=== PATIENT | male | born 1990 | race Caucasian/White ===

== ENCOUNTER 2016-09-28 18:56 | Emergency (ER) | payer MEDICAID | END 2016-09-28 20:31 | disposition home or self-care (01) | DX: B36.0 Pityriasis versicolor (principal); F17.200 Nicotine dependence, unspecified, uncomplicated ==

== ENCOUNTER 2018-01-19 12:13 | Emergency (ER) | payer BC, MEDICAID ==
--- NOTE | 2018-01-19 14:23 | ED Physician Documentation ---
PD HPI CHEST PAIN - Stated complaint Stated Complaint: CHEST PX - Chief complaint Chief Complaint: General - History obtained from History obtained from: Patient - History of Present Illness Timing - onset: Today, How many months ago (1-2) Timing - details: Intermittant Quality: Sharp, Tearing, Pain Location: Substernal, Right chest Radiation: Back Improved by: Nothing (it comes intermittently, not related to food nor activity per se. Usually during the day. Pain will be sharp and severe, cause catching of breath and worse with breathing, then slowly fade over minutes to hours. No pains intervening times.) Worsened by: Inspiration, Movement. No: Eating, Palpation Associated symptoms: Shortness of air. No: Nausea, Feeling faint / dizzy, General Weakness, Palpitations, Cough Similar symptoms before: No diagnosis (had occurred intermittently about 1-2 times per week the past couple of months.) Recently seen: Not recently seen Review of Systems Constitutional: denies: Fever, Chills Nose: denies: Rhinorrhea / runny nose, Congestion Throat: denies: Sore throat Cardiac: reports: Chest pain / pressure (as in HPI). denies: Palpitations, Pedal edema, Calf pain Respiratory: reports: Wheezing (occasional due to smoking). denies: Dyspnea, Cough GI: denies: Abdominal Pain, Nausea, Vomiting, Diarrhea : denies: Dysuria, Frequency Skin: denies: Rash Neurologic: denies: Focal weakness, Numbness, Near syncope, Syncope, Headache Endocrine: denies: Weight loss, Easy bruising / bleeding Immunocompromised: denies: Immunocompromised PD PAST MEDICAL HISTORY - Past Medical History Cardiovascular: None Respiratory: None Neuro: None Endocrine/Autoimmune: None GI: Ulcers, Crohn's disease : Kidney stones - Past Surgical History Past Surgical History: No - Present Medications Home Medications: Ambulatory Orders Medication Instructions Recorded Confirmed Cyclobenzaprine [Flexeril] 10 mg PO QPM PRN #20 tablet 01/20/18 Ibuprofen [Motrin] 400 mg PO Q6H PRN #30 tablet 01/20/18 Lidocaine Patch 5% [Lidoderm Patch] 1 each TOP DAILY PRN #10 patch 01/20/18 Sucralfate 1 gm PO ACHS #120 tablet 01/20/18 raNITIdine [Zantac] 150 mg PO BID #60 tablet 01/20/18 - Allergies Allergies/Adverse Reactions: Allergies Allergy/AdvReac Type Severity Reaction Status Date / Time No Known Drug Allergies Allergy Verified 01/20/18 06:33 - Living Situation Living Situation: reports: Alone Living Arrangement: reports: At home - Social History Does the pt smoke?: Yes Smoking Status: Current every day smoker Does the pt drink ETOH?: No Does the pt have substance abuse?: Yes - Family History Family history: reports: Non contributory. denies: Venous thromboembolism, Aortic dissection - Immunizations Immunizations are current?: Yes - POLST Patient has POLST: No PD ED PE NORMAL - Vitals Vital signs reviewed: Yes - General General: Alert and oriented X 3, Well developed/nourished - HEENT HEENT: Pharynx benign - Neck Neck: Supple, no meningeal sign, No adenopathy - Cardiac Cardiac: RRR, No murmur - Respiratory Respiratory: Clear bilaterally - Abdomen Abdomen: Soft, Non tender - Back Back: No CVA TTP - Derm Derm: Normal color, Warm and dry - Extremities Extremities: No deformity, No tenderness to palpate, Normal ROM s pain, No edema , No calf tenderness / cord - Neuro Neuro: Alert and oriented X 3, No motor deficit, Normal speech - Psych Psych: Normal mood, Normal affect Results - Vitals Vitals: Vital Signs - 24 hr 01/19/18 01/19/18 01/19/18 12:18 13:59 14:23 Temperature 36.8 C Heart Rate 89 76 71 Respiratory 16 12 12 Rate Blood Pressure 127/65 121/76 119/75 O2 Saturation 98 98 100 01/19/18 15:38 Temperature Heart Rate 59 L Respiratory 13 Rate Blood Pressure 114/73 O2 Saturation 99 Oxygen O2 Source Room air - EKG (time done) 12:19 Rate: Rate (enter#) (89) Rhythm: NSR [place]: Normal Intervals: Normal [place] QRS: Normal Ischemia: Normal ST segments, ST elevation c/w repol. No: ST elevation c/w ischemia, ST depression, T wave inversion - Labs Labs: Laboratory Tests 01/19/18 01/19/18 01/19/18 15:20 15:20 15:20 WBC 7.5 RBC 4.71 Hgb 14.4 Hct 42.1 MCV 89.5 MCH 30.6 MCHC 34.2 RDW 13.1 Plt Count 287 MPV 6.8 L Neut # (Auto) 4.9 Lymph # (Auto) 2.0 Weld # (Auto) 0.5 Eos # (Auto) 0.1 Baso # (Auto) 0.1 Absolute Nucleated RBC 0.00 Nucleated RBC % 0.0 ESR 2 Sodium 135 Potassium 3.9 Chloride 108 Carbon Dioxide 25 Anion Gap 2.0 L BUN 11 Creatinine 0.7 Estimated GFR (MDRD) 136 Glucose 88 Calcium 8.7 Total Bilirubin 0.6 AST 23 ALT 19 Alkaline Phosphatase 59 Total Protein 7.1 Albumin 4.0 Globulin 3.1 Albumin/Globulin Ratio 1.3 Lipase 25 PD MEDICAL DECISION MAKING - ED course Complexity details: re-evaluated patient (CT was backlogged some so taking awhile through the whole ER process and patient decided it was taking too long and left. He was about to go to CT, but opted for leaving. Encouraged to return for further evaluation or with recurrent episodes. ), considered differential ( pleuritic intermittent pain. He is tall and thin, so concern for PTX but recurrences would be unusual. Consider aortic process, which would be bad. Talked with him and shared decision to do CT-A of chest to evaluate for serious cause. ), d/w patient - Sepsis Event Vital Signs: Vital Signs - 24 hr 01/19/18 01/19/18 01/19/18 12:18 13:59 14:23 Temperature 36.8 C Heart Rate 89 76 71 Respiratory 16 12 12 Rate Blood Pressure 127/65 121/76 119/75 O2 Saturation 98 98 100 01/19/18 15:38 Temperature Heart Rate 59 L Respiratory 13 Rate Blood Pressure 114/73 O2 Saturation 99 Oxygen O2 Source Room air Departure - Departure Disposition: 07 Against Medical Advice Clinical Impression: Intermittent chest pain Condition: Stable Record reviewed to determine appropriate education?: Yes Instructions: ED Chest Pain Atypical Unkn Cause Follow-Up: [facility] [Provider Group] [facility] [Provider Group] Comments: I do not know the cause of your pain episodes. It may require further testing in order to exclude more significant causes. Please return to the ER if you have repeated episodes or worse or persistent ones. We can treat it with some anti-inflammatories in the short-term and see if that improves the symptoms. I listed a couple of clinics in the [place] area they can call for follow-up if they wanted to do any further testing. The intermittent nature of it could suggest irregular heartbeats at 2 and they could set her up with a heart monitor to wear over a week or such. I am sorry that department was busy today and that to were not able to stay in order to complete the suggested testing to look for the causes. Please return in the future if you have recurrent symptoms. Discharge Date/Time: 01/19/18 16:46
[2018-01-19] MEDS ORDERED: KETOROLAC 60 MG/2 ML VIAL IVP STA (15:11)
[2018-01-19] MEDS ORDERED: SODIUM CHLORIDE 0.9% 1,000 ML IV ONE (15:11)
[2018-01-19 15:29] LABS: BASOPHILS # (AUTO) 0.1 10^3/uL (0.0-0.1); BASOPHILS % (AUTO) 0.7 %; EOSINOPHILS # (AUTO) 0.1 10^3/uL (0.0-0.7); EOSINOPHILS % (AUTO) 0.9 %; HGB - HEMOGLOBIN 14.4 g/dL (14.0-18.0); LYMPHOCYTES % (AUTO) 26.3 %; MEAN CORPUSCULAR HEMOGLOBIN 30.6 pg (27.0-31.0); MEAN CORPUSCULAR HGB CONC 34.2 g/dL (32.0-36.0); MEAN CORPUSCULAR VOLUME 89.5 fL (80.0-94.0); MEAN PLATELET VOLUME 6.8 fL (7.4-11.4); MONOCYTES # (AUTO) 0.5 10^3/uL (0.0-1.0); MONOCYTES % (AUTO) 6.7 %; NEUTROPHILS # (AUTO) 4.9 10^3/uL (1.5-6.6); NEUTROPHILS % (AUTO) 65.4 %; PLT - PLATELET COUNT 287 10^3/uL (130-450); RED BLOOD COUNT 4.71 10^6/uL (4.70-6.10); RED CELL DISTRIBUTION WIDTH 13.1 % (12.0-15.0); WHITE BLOOD COUNT 7.5 x10^3/uL (4.8-10.8)
[2018-01-19 15:38] VITALS: BP 114/73
[2018-01-19 15:47] LABS: ALBUMIN/GLOBULIN RATIO 1.3 (1.0-2.2); BILIRUBIN,TOTAL 0.6 mg/dL (0.2-1.0); CALCIUM 8.7 mg/dL (8.5-10.3); CREATININE 0.7 mg/dL (0.6-1.2); TOTAL PROTEIN 7.1 g/dL (6.7-8.2)
[2018-01-19] MEDS ORDERED: IOPAMIDOL-300 100 ML VIAL ONE (16:14)
== END 2018-01-19 16:46 | disposition left against medical advice (07) ==
LOC: ED 12:13
DX: R07.9 Chest pain, unspecified (principal); F17.200 Nicotine dependence, unspecified, uncomplicated
CPT/HCPCS: 36415; 80053; 83690; 85025; 85651; 93005; 96361; 96374; 99283

== ENCOUNTER 2018-01-20 06:25 | Emergency (ER) | payer BC, MEDICAID ==
[2018-01-20 07:06] LABS: BASOPHILS # (AUTO) 0.1 10^3/uL (0.0-0.1); BASOPHILS % (AUTO) 0.7 %; EOSINOPHILS # (AUTO) 0.1 10^3/uL (0.0-0.7); EOSINOPHILS % (AUTO) 0.9 %; HGB - HEMOGLOBIN 14.3 g/dL (14.0-18.0); LYMPHOCYTES # (AUTO) 1.8 10^3/uL (1.5-3.5); LYMPHOCYTES % (AUTO) 19.1 %; MEAN CORPUSCULAR HEMOGLOBIN 30.8 pg (27.0-31.0); MEAN CORPUSCULAR HGB CONC 34.3 g/dL (32.0-36.0); MEAN CORPUSCULAR VOLUME 89.9 fL (80.0-94.0); MONOCYTES # (AUTO) 0.5 10^3/uL (0.0-1.0); MONOCYTES % (AUTO) 5.6 %; NEUTROPHILS # (AUTO) 6.9 10^3/uL (1.5-6.6); NEUTROPHILS % (AUTO) 73.7 %; PLT - PLATELET COUNT 239 10^3/uL (130-450); RED BLOOD COUNT 4.65 10^6/uL (4.70-6.10); RED CELL DISTRIBUTION WIDTH 13.4 % (12.0-15.0); WHITE BLOOD COUNT 9.4 x10^3/uL (4.8-10.8)
[2018-01-20 07:18] LABS: ALBUMIN 3.9 g/dL (3.2-5.5); ALBUMIN/GLOBULIN RATIO 1.3 (1.0-2.2); BILIRUBIN,TOTAL 0.6 mg/dL (0.2-1.0); CALCIUM 8.8 mg/dL (8.5-10.3); CREATININE 0.9 mg/dL (0.6-1.2)
[2018-01-20] MEDS ORDERED: FAMOTIDINE 20 MG TABLET PO STA (07:22)
[2018-01-20] MEDS ORDERED: KETOROLAC 60 MG/2 ML VIAL IM STA (07:22)
[2018-01-20] MEDS ORDERED: FLUCONAZOLE 100 MG TABLET PO STA (07:22)
--- NOTE | 2018-01-20 07:25 | ED Physician Documentation ---
History of Present Illness - Stated complaint Stated Complaint: CHEST DISCOMFORT - Chief complaint Chief Complaint: Cardiac - Additonal information Additional information: hx from pt 27 male pmhx sig for GI issues - had work up as a teenager but did not get rec scopes - has int abd pain NV GERD sx every since to R today for chest pain X 1 month pain is ant mid and left worse with moving lifting palpating and breathing some SOA 2/2 pain with breathing occ cough no extended travel no leg swelling last up to an hr at a time also hx chrnic GI sx are acting up today and he has a rash to his torso worse with recent warm weather which previously resolved with diflucan Review of Systems Constitutional: denies: Fever, Chills Throat: denies: Sore throat Cardiac: reports: Chest pain / pressure Respiratory: reports: Dyspnea. denies: Cough (minimal) GI: reports: Abdominal Pain (chronic) : denies: Dysuria Musculoskeletal: denies: Extremity pain, Extremity swelling Neurologic: denies: Generalized weakness PD PAST MEDICAL HISTORY - Past Medical History Past Medical History: Yes GI: Ulcers, Crohn's disease : Kidney stones - Past Surgical History Past Surgical History: No - Present Medications Home Medications: Ambulatory Orders Medication Instructions Recorded Confirmed Cyclobenzaprine [Flexeril] 10 mg PO QPM PRN #20 tablet 01/20/18 Ibuprofen [Motrin] 400 mg PO Q6H PRN #30 tablet 01/20/18 Lidocaine Patch 5% [Lidoderm Patch] 1 each TOP DAILY PRN #10 patch 01/20/18 Sucralfate 1 gm PO ACHS #120 tablet 01/20/18 raNITIdine [Zantac] 150 mg PO BID #60 tablet 01/20/18 - Allergies Allergies/Adverse Reactions: Allergies Allergy/AdvReac Type Severity Reaction Status Date / Time No Known Drug Allergies Allergy Verified 01/20/18 06:33 - Social History Does the pt smoke?: Yes Smoking Status: Current every day smoker Does the pt drink ETOH?: No Does the pt have substance abuse?: Yes - Immunizations Immunizations are current?: Yes - POLST Patient has POLST: No PD ED PE NORMAL - Vitals Vital signs reviewed: Yes - HEENT HEENT: Atraumatic - Neck Neck: Supple, no meningeal sign - Cardiac Cardiac: RRR - Respiratory Respiratory: No respiratory distress, Other (shallow resp 2/2 pain with breathing, no wheezes or rales) - Abdomen Abdomen: Soft, Other (mod diffuse TTP upper > lower s focal TTP or peritoneal signs) - Derm Derm: Other - Extremities Extremities: No edema, No calf tenderness / cord - Neuro Neuro: Alert and oriented X 3 Results - Vitals Vitals: Vital Signs - 24 hr 01/20/18 06:32 Temperature 36.7 C Heart Rate 88 Respiratory 18 Rate Blood Pressure 136/81 H O2 Saturation 100 Oxygen O2 Source Room air - EKG (time done) 0644 Rate: Rate (enter#) (67) Rhythm: NSR [place]: Normal Intervals: Normal [place] QRS: Normal Ischemia: ST elevation c/w repol - Labs Labs: Laboratory Tests 01/20/18 01/20/18 01/20/18 06:56 06:56 06:56 WBC 9.4 RBC 4.65 L Hgb 14.3 Hct 41.8 L MCV 89.9 MCH 30.8 MCHC 34.3 RDW 13.4 Plt Count 239 MPV 7.0 L Neut # (Auto) 6.9 H Lymph # (Auto) 1.8 [place]christ # (Auto) 0.5 Eos # (Auto) 0.1 Baso # (Auto) 0.1 Absolute Nucleated RBC 0.01 Nucleated RBC % 0.1 Sodium 137 Potassium 3.9 Chloride 108 Carbon Dioxide 24 Anion Gap 5.0 L BUN 12 Creatinine 0.9 Estimated GFR (MDRD) 102 Glucose 109 H Calcium 8.8 Total Bilirubin 0.6 AST 23 ALT 19 Alkaline Phosphatase 66 Troponin I < 0.04 B-Natriuretic Peptide Total Protein 7.0 Albumin 3.9 Globulin 3.1 Albumin/Globulin Ratio 1.3 Lipase 26 01/20/18 06:56 WBC RBC Hgb Hct MCV MCH MCHC RDW Plt Count MPV Neut # (Auto) Lymph # (Auto) Gilchrist # (Auto) Eos # (Auto) Baso # (Auto) Absolute Nucleated RBC Nucleated RBC % Sodium Potassium Chloride Carbon Dioxide Anion Gap BUN Creatinine Estimated GFR (MDRD) Glucose Calcium Total Bilirubin AST ALT Alkaline Phosphatase Troponin I B-Natriuretic Peptide 32 Total Protein Albumin Globulin Albumin/Globulin Ratio Lipase PD MEDICAL DECISION MAKING - ED course ED course: pt received a MSE EKG s acute ischemia and trop neg despite a month of sx lasting up to an hr at a time essentially rules out ACS PERC negative so doubt PE mediastinum tight on CXR and no cap or effusion so doubt dissection CXR also neg for pneumo, pna etc pt is TTP and pain is worse with moving palp and breathing seems muscular and this would fit with pt job which reequeires lifting re the abd pain this is a long standing issue not new - his has a non peritoneal ; exam, his LFTs lipase etc are neg will rx zantac and carafate and refer to surgery as pt now wishes to proceed with the scopes he declined whn he was younger and his rash looks like tinea versicolor and he was txed with diflucan which has worked before no emergent condition identified after careful wup and consideration - and feel pt is safe to dc with symptomatic meds - Sepsis Event Vital Signs: Vital Signs - 24 hr 01/20/18 06:32 Temperature 36.7 C Heart Rate 88 Respiratory 18 Rate Blood Pressure 136/81 H O2 Saturation 100 Oxygen O2 Source Room air Departure - Departure Disposition: 01 Home, Self Care Clinical Impression: Tinea versicolor Chest pain Qualifiers: Chest pain type: unspecified Qualified Code(s): R07.9 - Chest pain, unspecified Abdominal pain Qualifiers: Abdominal location: upper abdomen, unspecified Qualified Code(s): R10.10 - Upper abdominal pain, unspecified Condition: Good Instructions: ED Chest Pain Atypical Unkn Cause, ED Strain Chest Wall, ED T Versicolor Infec Fungal Follow-Up: Sanya Boles MD [Provider Admit Priv/Credential] - (to discuss getting the previously recommended scope to further evaluate your ongoing GI issues ) Prescriptions: Cyclobenzaprine [Flexeril] 10 mg PO QPM PRN #20 tablet PRN Reason: chest wall pain Ibuprofen [Motrin] 400 mg PO Q6H PRN #30 tablet PRN Reason: Pain Lidocaine Patch 5% [Lidoderm Patch] 1 each TOP DAILY PRN #10 patch PRN Reason: Pain raNITIdine [Zantac] 150 mg PO BID #60 tablet Sucralfate 1 gm PO ACHS #120 tablet Comments: Thankfully your work up is reassuring The EKG and blood work do not indicate you have had a heart attack Your history and exam do not suggest a blood clot in your lungs The xray does not show any infection, collapsed lung, tumors, aneurysms. Since it hurts to move, lift, breathe, and push on the chest wall, I think this pain is due to the muscles in your chest wall This should improved with some rest (no lifting more than 10 lbs for the rest of the week), anti-inflammatory medication such as motrin (take with food), a muscle relaxant taken at bed times, and lidocaine patches that can be applied to the most painful area for up to 12 hr a day Although your heart and lungs check out fine right now, you really need to stop smoking I have prescribed some medications to ease your abdominal pains as well, and referred you to the surgery clinic to get the scopes that were previously recommended. And we treated your rash with diflucan in the ER and that should clear up in the next few days Forms: Activity restrictions
[2018-01-20] MEDS ORDERED: IBUPROFEN 400 MG TABLET PO STA (07:34)
--- NOTE | 2018-01-20 07:34 | XRAY Report ---
Procedure Date: 01/20/2018 Accession Number: [id number] / [id number] Procedure: XR - Chest 2 View X-Ray CPT Code: 87149 FULL RESULT: EXAM: CHEST RADIOGRAPHY EXAM DATE: 01/20/2018 07:26 AM. CLINICAL HISTORY: Chest pain. COMPARISON: None. TECHNIQUE: 2 views. FINDINGS: Lungs/Pleura: No focal opacities evident. No pleural effusion. No pneumothorax. Normal volumes. Mediastinum: Heart and mediastinal contours are unremarkable. Other: None. IMPRESSION: Normal 2-view chest radiography. RADIA
[2018-01-20 08:10] VITALS: BP 112/73
== END 2018-01-20 08:10 | disposition home or self-care (01) ==
LOC: ED 06:25
DX: B36.0 Pityriasis versicolor (principal); R07.9 Chest pain, unspecified; R10.10 Upper abdominal pain, unspecified; F17.200 Nicotine dependence, unspecified, uncomplicated
CPT/HCPCS: 36415; 71046; 80053; 83690; 83880; 84484; 85025; 93005; 99283; A9270

== ENCOUNTER 2019-03-22 05:43 | Emergency (ER) | payer BC, MEDICAID ==
[2019-03-22] MEDS ORDERED: KETOROLAC 60 MG/2 ML VIAL IM STA (06:42)
[2019-03-22] MEDS ORDERED: DEXAMETHASONE 10 MG/ML VIAL PO STA (06:42)
[2019-03-22] MEDS ORDERED: CHERRY SYRUP 10 ML UDC PO ONE (06:42)
--- NOTE | 2019-03-22 06:49 | ED Physician Documentation ---
PD HPI BACK PAIN - Stated complaint Stated Complaint: HIP/BK PX - Chief complaint Chief Complaint: Back Pain - History obtained from History obtained from: Patient - History of Present Illness Timing - onset: Enter time (429), Today Timing - duration: Hours Timing - details: Abrupt onset, Still present Location: Lower, Left Quality: Pain, Spasm, Sharp, Similar to prior episodes Associated symptoms: No: Fever, Weakness, Numbness, Incontinent of urine, Unable to urinate, Hematuria, Incontinent of stool Improves with: Rest, Position Worsened by: Movement, Twisting Contributing factors: Other (heavy lifting at work on a regular basis) Similar symptoms before: Diagnosis (back pain) Recently seen: Not recently seen - Additional information Additional information: Previously well 28-year-old male who works at [employer] does a lot of heavy lifting at work he has not been at work since Friday and this morning at about 4:30 in the morning he awoke suddenly with pain in his right lower back. He has pain radiating down to the right thigh laterally. He is uncertain the exact loading injury but indicates he did not do anything specific yesterday that would have incited this. He has severe pain and he is only able to get comfortable if he is standing on his right leg if he shifts his weight off of the leg he has pain in his back radiating down the lateral aspect of the thigh. He denies any changes in his bowel or bowel or bladder or any saddle anesthesia. Review of Systems Constitutional: denies: Fever Ears: denies: Ear pain Nose: denies: Congestion Throat: denies: Sore throat Respiratory: denies: Cough GI: denies: Nausea, Vomiting, Constipation, Diarrhea : denies: Dysuria, Frequency Skin: reports: Rash PD PAST MEDICAL HISTORY - Past Medical History Past Medical History: Yes Cardiovascular: None Respiratory: None Neuro: None Endocrine/Autoimmune: None GI: Ulcers, Crohn's disease : Kidney stones HEENT: None Psych: None Musculoskeletal: None Derm: None - Past Surgical History Past Surgical History: No - Present Medications Home Medications: Ambulatory Orders Medication Instructions Recorded Confirmed Cyclobenzaprine [Flexeril] 10 mg PO QPM PRN #20 tablet 01/20/18 Ibuprofen [Motrin] 400 mg PO Q6H PRN #30 tablet 01/20/18 Lidocaine Patch 5% [Lidoderm Patch] 1 each TOP DAILY PRN #10 patch 01/20/18 Sucralfate 1 gm PO ACHS #120 tablet 01/20/18 raNITIdine [Zantac] 150 mg PO BID #60 tablet 01/20/18 Cyclobenzaprine [Flexeril] 10 mg PO TID PRN #20 tablet 03/22/19 Fluconazole [Diflucan] 100 mg PO DAILY PM #14 tablet 03/22/19 Hydrocodone/Acetaminophen 1 - 2 each PO Q6H PRN #14 tablet 03/22/19 [Hydrocodon-Acetaminophen 5-325] - Allergies Allergies/Adverse Reactions: Allergies Allergy/AdvReac Type Severity Reaction Status Date / Time No Known Drug Allergies Allergy Verified 01/20/18 06:33 - Social History Does the pt smoke?: Yes Smoking Status: Current every day smoker Does the pt drink ETOH?: Yes Does the pt have substance abuse?: No Substance Use and Type: Marijuana - Immunizations Immunizations are current?: No Immunizations: TDAP >10years/unknown - POLST Patient has POLST: No PD ED PE NORMAL - Vitals Vital signs reviewed: Yes (tachy and hypertensive ) - General General: Alert and oriented X 3, No acute distress, Well developed/nourished, Other (standing in the room leaning on the bed as position of comfort) - HEENT HEENT: Atraumatic, PERRL - Respiratory Respiratory: No respiratory distress - Back Back: No CVA TTP, No spinal TTP, Other (There is tenderness to the paraspinous muscles of the lower lumbar spine on the right side extending into the sciatic notch. ) - Derm Derm: Normal color, Warm and dry, Other (There is an erythematous plaque rash to the abdomen consistent with tinea) - Extremities Extremities: No deformity, No edema - Neuro Neuro: Alert and oriented X 3, operations and intelligence assistant 2-12 intact, No motor deficit, No sensory deficit, Normal speech Eye Opening: Spontaneous Motor: Obeys Commands Verbal: Oriented GCS Score: 15 - Psych Psych: Normal mood, Normal affect Results - Vitals Vitals: Vital Signs - 24 hr 03/22/19 05:48 Temperature 36.6 C Heart Rate 110 H Respiratory 16 Rate Blood Pressure 152/88 H O2 Saturation 100 Oxygen O2 Source Room air PD MEDICAL DECISION MAKING - ED course Complexity details: reviewed old records, considered differential, d/w patient ED course: Previously well 28-year-old male with acute sciatica is administered dexamethasone 10 mg orally and 60 mg of Toradol IM. Departure - Departure Disposition: 01 Home, Self Care Clinical Impression: Tinea versicolor Sciatica Qualifiers: Laterality: right Qualified Code(s): M54.31 - Sciatica, right side Condition: Stable Instructions: ED Sciatica, ED Infec Skin Fungal Tinea Follow-Up: [facility] [Provider Group] Prescriptions: Cyclobenzaprine [Flexeril] 10 mg PO TID PRN #20 tablet PRN Reason: Spasms Fluconazole [Diflucan] 100 mg PO DAILY PM #14 tablet Hydrocodone/Acetaminophen [Hydrocodon-Acetaminophen 5-325] 1 - 2 each PO Q6H PRN #14 tablet PRN Reason: pain Forms: Activity restrictions
[2019-03-22 07:11] VITALS: BP 115/92
== END 2019-03-22 07:17 | disposition home or self-care (01) ==
LOC: ED 05:43
DX: M54.31 Sciatica, right side (principal); B36.0 Pityriasis versicolor; F17.200 Nicotine dependence, unspecified, uncomplicated
CPT/HCPCS: 96372; 99283; 99284; A9270

== ENCOUNTER 2019-03-24 09:30 | Emergency (ER) | payer SELFPAY ==
[2019-03-24 09:41] VITALS: BP 121/86
[2019-03-24] MEDS ORDERED: DEXAMETHASONE 10 MG/ML VIAL PO STA (10:48)
[2019-03-24] MEDS ORDERED: CHERRY SYRUP 10 ML UDC PO ONE (10:48)
[2019-03-24] MEDS ORDERED: KETOROLAC 60 MG/2 ML VIAL IM STA (10:48)
--- NOTE | 2019-03-24 10:50 | ED Physician Documentation ---
PD HPI BACK PAIN - Stated complaint Stated Complaint: BACK PX - Chief complaint Chief Complaint: Back Pain - History obtained from History obtained from: Patient, Family - History of Present Illness Timing - onset: How many days ago (4) Timing - duration: Days (4) Timing - details: Abrupt onset, Still present Location: Lower, Right Quality: Pain, Spasm, Sharp, Similar to prior episodes Associated symptoms: No: Fever, Weakness, Numbness, Incontinent of urine, Unable to urinate, Hematuria, Incontinent of stool Improves with: Rest, Position, Meds Worsened by: Movement Contributing factors: Lifting, Twisting Similar symptoms before: Diagnosis (sciatica) Recently seen: Emergency Dept - Additional information Additional information: 28-year-old male with a history of Crohn's disease 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 He states that he did not fill the hydrocodone because he does not take that medication as it will constipate him in make his Crohn's worse. He has not had relief with acetaminophen ibuprofen or aspirin. He took 3 of the Flexeril this morning without relief. He is come back to the emergency department with symptoms similar to prior. Review of Systems Constitutional: denies: Fever Eyes: denies: Decreased vision Ears: denies: Ear pain Nose: denies: Congestion Throat: denies: Sore throat Respiratory: denies: Dyspnea, Cough GI: denies: Abdominal Pain, Nausea, Vomiting : denies: Dysuria, Frequency Skin: denies: Rash Musculoskeletal: reports: Back pain, Extremity pain. denies: Neck pain Neurologic: denies: Generalized weakness, Focal weakness, Numbness PD PAST MEDICAL HISTORY - Past Medical History Cardiovascular: None Respiratory: None Neuro: None Endocrine/Autoimmune: None GI: Ulcers, Crohn's disease : Kidney stones HEENT: None Psych: None Musculoskeletal: None Derm: None - Past Surgical History Past Surgical History: No - Present Medications Home Medications: Ambulatory Orders Medication Instructions Recorded Confirmed Cyclobenzaprine [Flexeril] 10 mg PO QPM PRN #20 tablet 01/20/18 Ibuprofen [Motrin] 400 mg PO Q6H PRN #30 tablet 01/20/18 Lidocaine Patch 5% [Lidoderm Patch] 1 each TOP DAILY PRN #10 patch 01/20/18 Sucralfate 1 gm PO ACHS #120 tablet 01/20/18 raNITIdine [Zantac] 150 mg PO BID #60 tablet 01/20/18 Cyclobenzaprine [Flexeril] 10 mg PO TID PRN #20 tablet 03/22/19 Fluconazole [Diflucan] 100 mg PO DAILY PM #14 tablet 03/22/19 Hydrocodone/Acetaminophen 1 - 2 each PO Q6H PRN #14 tablet 03/22/19 [Hydrocodon-Acetaminophen 5-325] traMADol [Ultram] 50 - 100 mg PO Q6H PRN #20 tablet 03/24/19 - Allergies Allergies/Adverse Reactions: Allergies Allergy/AdvReac Type Severity Reaction Status Date / Time No Known Drug Allergies Allergy Verified 03/24/19 09:35 - Social History Does the pt smoke?: Yes Smoking Status: Current every day smoker Does the pt drink ETOH?: Yes Does the pt have substance abuse?: No - Immunizations Immunizations are current?: No Immunizations: TDAP >10years/unknown - POLST Patient has POLST: No PD ED PE NORMAL - Vitals Vital signs reviewed: Yes (hypertensive mild) - General General: Alert and oriented X 3, No acute distress, Well developed/nourished - HEENT HEENT: Atraumatic, PERRL, EOMI - Neck Neck: Supple, no meningeal sign - Respiratory Respiratory: No respiratory distress - Back Back: No CVA TTP, No spinal TTP, Other (mild tenderness to the lower lateral lumbar spine on the right side extending into the sciatic notch. ) - Derm Derm: Normal color, Warm and dry, No rash - Extremities Extremities: No deformity, No edema - Neuro Neuro: Alert and oriented X 3, career manager 2-12 intact, No motor deficit, No sensory deficit, Normal speech Eye Opening: Spontaneous Motor: Obeys Commands Verbal: Oriented GCS Score: 15 - Psych Psych: Normal mood, Normal affect Results - Vitals Vitals: Vital Signs - 24 hr 03/24/19 09:32 Temperature 36.3 C L Heart Rate 91 Respiratory 19 Rate Blood Pressure 121/86 H O2 Saturation 100 Oxygen O2 Source Room air PD MEDICAL DECISION MAKING - ED course Complexity details: considered differential, d/w patient, d/w family ED course: 28-year-old male with a right-sided sciatica is intolerant of narcotic pain reliever and has not been getting adequate pain relief. I discussed with the patient a trial of tramadol and he is willing to try this. He is requesting retreatment similar to previous which was very effective. He is re-administered both dexamethasone and Toradol. Departure - Departure Disposition: Home, Self Care Clinical Impression: Sciatica Qualifiers: Laterality: right Qualified Code(s): M54.31 - Sciatica, right side Condition: Stable Instructions: ED Sciatica Follow-Up: Gracia Cortez PA [Provider Admit Priv/Credential] - Prescriptions: traMADol [Ultram] 50 - 100 mg PO Q6H PRN #20 tablet PRN Reason: Pain
== END 2019-03-24 11:27 | disposition home or self-care (01) ==
LOC: ED 09:30
DX: M54.41 Lumbago with sciatica, right side (principal); Z87.19 Personal history of other diseases of the digestive system; F17.200 Nicotine dependence, unspecified, uncomplicated
CPT/HCPCS: 96372; 99283; 99284; A9270

== ENCOUNTER 2020-10-18 00:15 | Emergency (ER) | payer SELFPAY ==
--- OUTSIDE RECORDS SUMMARY | 2020-10-18 00:24 | EXTERNAL MEDICAL SUMMARY RPT | Continuity of Care Document ---
:1990 Demographics Phone Unavailable Preferred Language Unknown Marital Status Unknown Jew Affiliation Unknown Race Unknown Ethnic Group Unknown Author Organization [facility] Address [address] [phone] Phone Social History date description facility [phone]
--- NOTE | 2020-10-18 00:55 | ED Physician Documentation ---
PD HPI BACK PAIN - Stated complaint Stated Complaint: LOWER BACK PX - Chief complaint Chief Complaint: Back Pain - History obtained from History obtained from: Patient - History of Present Illness Timing - onset: How many weeks ago (1) Timing - details: Gradual onset, Intermittant Pain level now: 5 Location: Left Quality: Pain Associated symptoms: No: Fever, Weakness, Numbness, Incontinent of urine, Unable to urinate, Hematuria, Incontinent of stool Improves with: Rest Worsened by: Movement - Additional information Additional information: Patient presents with one week of gradual onset intermittent left low back pain radiating down the left lower extremitys. Denies weakness or numbness on my HPI. denies history of similar symptoms. Denies injury. denies fever. Review of Systems Constitutional: denies: Fever GI: denies: Abdominal Pain : denies: Incontinent Musculoskeletal: reports: Back pain. denies: Extremity swelling Neurologic: denies: Focal weakness, Numbness PD PAST MEDICAL HISTORY - Past Medical History Past Medical History: Yes Cardiovascular: None Respiratory: None Neuro: None Endocrine/Autoimmune: None GI: Ulcers, Crohn's disease : Kidney stones HEENT: None Psych: None Musculoskeletal: None Derm: None - Past Surgical History Past Surgical History: No - Present Medications Home Medications: Ambulatory Orders Medication Instructions Recorded Confirmed Cyclobenzaprine [Flexeril] 10 mg PO TID PRN #20 tablet 10/18/20 Oxycodone HCl/Acetaminophen 1 - 2 each PO Q6H PRN #14 tablet 10/18/20 [Percocet 5-325 mg Tablet] traMADol [Ultram] 50 - 100 mg PO Q6H PRN #14 tablet 10/18/20 - Allergies Allergies/Adverse Reactions: Allergies Allergy/AdvReac Type Severity Reaction Status Date / Time No Known Drug Allergies Allergy Verified 10/18/20 00:27 - Social History Does the pt smoke?: Yes Smoking Status: Current every day smoker Does the pt drink ETOH?: Yes Does the pt have substance abuse?: No - Immunizations Immunizations are current?: No Immunizations: TDAP >10years/unknown - POLST Patient has POLST: No PD ED PE NORMAL - Vitals Vital signs reviewed: Yes - General General: Alert and oriented X 3, No acute distress, Well developed/nourished - Back Back: No CVA TTP, No spinal TTP - Extremities Extremities: Normal ROM s pain, No edema, No calf tenderness / cord - Neuro Neuro: No motor deficit, No sensory deficit Results - Vitals Vitals: Oxygen O2 Source Room air PD MEDICAL DECISION MAKING - ED course Complexity details: reviewed results, re-evaluated patient, d/w patient, d/w family Departure - Departure Disposition: 01 Home, Self Care Clinical Impression: Back pain Condition: Good Instructions: ED Sciatica Follow-Up: Severiano Rosas MD [Provider Admit Priv/Credential] - Prescriptions: Cyclobenzaprine [Flexeril] 10 mg PO TID PRN #20 tablet PRN Reason: Spasms Oxycodone HCl/Acetaminophen [Percocet 5-325 mg Tablet] 1 - 2 each PO Q6H PRN #14 tablet PRN Reason: pain traMADol [Ultram] 50 - 100 mg PO Q6H PRN #14 tablet PRN Reason: Pain Comments: Use the tramadol (Ultram) for mild or moderate pain. You can use the oxycodone/acetaminophen (percocet) for severe pain or pain that does not adequately respond to the ultram after 1-2 hours. You can also use the cyclobenzaprine (flexeril) with either of these medications if you feel muscle spasm. Forms: Activity restrictions Discharge Date/Time: 10/18/20 01:45
[2020-10-18] MEDS ORDERED: KETOROLAC 60 MG/2 ML VIAL IM STA (01:13)
[2020-10-18] MEDS ORDERED: DEXAMETHASONE 10 MG/ML VIAL PO STA (01:17)
[2020-10-18] MEDS ORDERED: CHERRY SYRUP 10 ML UDC PO ONE (01:17)
[2020-10-18] MEDS ORDERED: oxyCODONE/ACET 5/325 Prepack 4 PO STA (01:17)
[2020-10-18] MEDS ORDERED: CYCLOBENZAPRINE 10 MG Prepack 2 PO PRN (01:18)
[2020-10-18 01:57] VITALS: BP 130/89
== END 2020-10-18 01:45 | disposition home or self-care (01) ==
LOC: ED 00:15
DX: M54.5 Low back pain (principal); M79.605 Pain in left leg; F17.200 Nicotine dependence, unspecified, uncomplicated
CPT/HCPCS: 96372; 99283; A9270